=== PATIENT | female | born 1990 | race Caucasian/White ===

== ENCOUNTER 2019-02-22 19:55 | Emergency (ER) | payer OTHER ==
[~2019-02-22] VITALS: Ht 149.9 cm; Wt 46.7 kg
[2019-02-22] MEDS ORDERED: ACETAMINOPHEN 325 MG TAB PO ONE (20:15)
[2019-02-22] MEDS ORDERED: TETANUS/DIPHTHERIA TOX ADULT 0.5 ML SYR IM ONE (20:15)
[2019-02-22] MEDS ORDERED: TETANUS/DIPHTHERIA TOX ADULT 0.5 ML SYR ONE (20:17)
[2019-02-22] MEDS ORDERED: AUGMENTIN 875-1 EACH PO (20:28)
--- NOTE | 2019-02-22 20:47 | Diagnostic Imaging Report ---
Exam: Left hand 3 views History: Pain Comparison: None. Findings: No fracture or malalignment. Joint spaces preserved. Soft tissue gas foci in the thenar soft tissues. Impression: Soft tissue injury in the thenar soft tissues Signed by: Dr. Santo Bernard M.D. on 02/22/2019 8:43 PM
[2019-02-22 21:07] VITALS: BP 112/60
== END 2019-02-22 21:08 | disposition home or self-care (01) ==
LOC: FSED 19:55
DX: S60.572A Other superficial bite of hand of left hand, initial encounter (principal); S60.372A Other superficial bite of left thumb, initial encounter; W54.0XXA Bitten by dog, initial encounter; Y92.008 Other place in unspecified non-institutional (private) residence as the place of occurrence of the external cause
CPT/HCPCS: 90471; 90714; 99284